=== PATIENT | female | born 1955 | race Caucasian/White ===

== ENCOUNTER 2016-09-03 00:16 | Emergency (ER) | payer SELFPAY ==
[~2016-09-03] VITALS: Ht 165.1 cm; Wt 70.0 kg
[2016-09-03] MEDS ORDERED: KETOROLAC TROMETHAMINE 30 MG/ML VIAL IM ONE (01:00)
[2016-09-03 01:08] VITALS: BP 133/77
== END 2016-09-03 01:10 | disposition home or self-care (01) ==
LOC: EMS 00:17
DX: L40.9 Psoriasis, unspecified (principal)
CPT/HCPCS: 96372; 99283; J1885